=== PATIENT | male | born 1960 | race Caucasian/White ===

== ENCOUNTER 2017-12-16 10:52 | Emergency (ER) | payer OTHER ==
--- NOTE | 2017-12-16 12:10 | ED Physician Documentation ---
PD HPI UPPER EXT INJURY - Stated complaint Stated Complaint: L SHOULDER INJ/GLF - Chief complaint Chief Complaint: Ext Problem - History obtained from History obtained from: Patient - History of Present Illness Location: Left, Shoulder Type of injury: Fall, Blunt / blow Where injury occurred: Home Timing - onset: Today Timing - details: Abrupt onset Severity Comments: moderate Improved by: Rest, Ice, Immobilization Worsened by: Moving Associated symptoms: No: Weakness, Numbness, Tingling Contributing factors: No: Anticoagulated Similar symptoms before: No diagnosis Recently seen: Not recently seen - Additonal information Additional information: No injury to the head, neck, torso, abdomen or lower extremities. Review of Systems Constitutional: reports: Fatigue. denies: Fever Cardiac: denies: Chest pain / pressure Respiratory: denies: Cough GI: denies: Abdominal Pain : denies: Dysuria Musculoskeletal: reports: Extremity pain, Joint pain. denies: Neck pain, Back pain, Joint swelling Neurologic: denies: Generalized weakness Immunocompromised: denies: Chemotherapy PD PAST MEDICAL HISTORY - Past Medical History Past Medical History: No Cardiovascular: None Respiratory: None Endocrine/Autoimmune: None GI: None : None HEENT: None Psych: None Musculoskeletal: None Derm: None - Past Surgical History Past Surgical History: Yes HEENT: Other - Present Medications Home Medications: Ambulatory Orders Medication Instructions Recorded Confirmed Naproxen [Naprosyn] 500 mg PO BID PRN 30 Days #30 12/16/17 tablet - Allergies Allergies/Adverse Reactions: Allergies Allergy/AdvReac Type Severity Reaction Status Date / Time No Known Drug Allergies Allergy Verified 12/16/17 11:21 - Social History Does the pt smoke?: No Smoking Status: Never smoker Does the pt drink ETOH?: No Does the pt have substance abuse?: No - Immunizations Immunizations are current?: No Immunizations: No immun PD ED PE NORMAL - General General: Alert and oriented X 3, No acute distress - HEENT HEENT: Atraumatic, PERRL, EOMI, Ears normal - Neck Neck: No bony TTP - Back Back: No spinal TTP - Derm Derm: Normal color - Extremities Extremities: No deformity. No: No tenderness to palpate (The patient has no tenderness palpation along the left clavicle, no crepitus. The patient has tenderness to palpation of the left shoulder. There is no obvious deformity. The patient has decreased range of motion secondary to pain.The patient has normal sensation over the deltoid. No pain in the left elbow or wrist or hand. Normal radial pulse and normal cap refill), Normal ROM s pain - Neuro Neuro: Alert and oriented X 3, Normal speech Results - Vitals Vitals: Vital Signs - 24 hr 12/16/17 12/16/17 10:59 13:03 Temperature 36.6 C 37.3 C Heart Rate 86 74 Respiratory 14 20 Rate Blood Pressure 110/73 108/75 O2 Saturation 98 100 Oxygen O2 Source Room air - Rads (name of study) Shoulder Radiology: Final report received, See rad report PD MEDICAL DECISION MAKING - ED course ED course: No fracture seen on x-ray per the radiologist, the patient appears appropriate for discharge and outpatient management. I advised that he should have a follow-up exam with primary care. If the patient's symptoms are not improving he may need a referral to orthopedics or an outpatient MRI. The patient understands and agrees. I discussed warning signs and recommended returning to the emergency department immediately for any worsening or concerns. Departure - Departure Disposition: 01 Home, Self Care Clinical Impression: Shoulder contusion Qualifiers: Encounter type: initial encounter Laterality: unspecified laterality Qualified Code(s): S40.019A - Contusion of unspecified shoulder, initial encounter Condition: Good Instructions: ED Contusion Shoulder Follow-Up: Nikolai Rodríguez MD [Primary Care Provider] - Within 1 week Prescriptions: Naproxen [Naprosyn] 500 mg PO BID PRN 30 Days #30 tablet PRN Reason: Pain Comments: Please return to the emergency department for worsening symptoms or new concerns.
[2017-12-16] MEDS ORDERED: NAPROXEN 250 MG TABLET PO STA (12:20)
--- NOTE | 2017-12-16 12:55 | XRAY Report ---
Reason: left shoulder injury Procedure Date: 12/16/2017 Accession Number: [id number] / [id number] Procedure: XR - Shoulder 3 View LT CPT Code: FULL RESULT: EXAM: LEFT SHOULDER RADIOGRAPHY EXAM DATE: 12/16/2017 11:34 AM. CLINICAL HISTORY: Left shoulder injury. COMPARISON: None. TECHNIQUE: 3 views. FINDINGS: Bones: Normal. No fracture or bone lesion. Joints: Glenohumeral joint space and alignment are normal. Mild acromioclavicular osteoarthritis. Soft tissues: Unremarkable IMPRESSION: No acute radiographic abnormality of the left shoulder. Mild left acromioclavicular osteoarthritis. [facility]
[2017-12-16 13:04] VITALS: BP 108/75
== END 2017-12-16 13:01 | disposition home or self-care (01) ==
LOC: ED 10:52
DX: S40.012A Contusion of left shoulder, initial encounter (principal); W01.10XA Fall on same level from slipping, tripping and stumbling with subsequent striking against unspecified object, initial encounter; Y92.009 Unspecified place in unspecified non-institutional (private) residence as the place of occurrence of the external cause
CPT/HCPCS: 73030; 99283; A9270

== ENCOUNTER 2018-02-04 08:42 | Outpatient (CLI) | payer OTHER ==
--- NOTE | 2018-02-04 14:09 | MRI Report ---
Reason: PAIN IN LEFT SHOULDER Procedure Date: 02/04/2018 Accession Number: [id number] / [id number] Procedure: MRI - Shoulder LT W/O CPT Code: FULL RESULT: EXAM: LEFT SHOULDER MRI WITHOUT CONTRAST EXAM DATE: 02/04/2018 09:43 AM. CLINICAL HISTORY: Pain in left shoulder. COMPARISON: None. TECHNIQUE: Multiplanar, multisequence T1-weighted and fluid-sensitive sequences of the shoulder without contrast. Other: None. FINDINGS: Acromioclavicular Region: The acromion is type II. The acromioclavicular joint is unremarkable. The coracoacromial and coracoclavicular ligaments are intact. Moderate amount of fluid in the bursa. Moderate joint effusion also seen. Glenohumeral Region: No subluxation. Moderate-sized joint effusion. Some debris also seen in the joint. Series 501 image 16. The articular cartilage is unremarkable. The glenohumeral ligaments and joint capsule are unremarkable. Bone Marrow: No fracture, marrow edema or bone lesions. Labrum: There is slight irregularity of the anterior labrum, no convincing evidence for labral pathology. Musculature/Rotator Cuff: Full-thickness tear distal anterior supraspinatus fibers allows joint fluid to flow easily into the bursa. Posterior half of the supraspinatus also shows some increased T2 signal. There is also a full-thickness tear of the subscapularis portions of the rotator cuff. Infraspinatus and teres minor are unremarkable. There is a small amount of edema in the musculotendinous junction of the subscapularis. Biceps Tendon: Long head biceps tendon is perched at the medial border of the bicipital groove with significant type I signal change. Other: The subcutaneous tissues are unremarkable. IMPRESSION: 1. Type II unipartite undersurface osseous acromion shape. Moderate amount of fluid in the bursa. Moderate joint effusion also seen. Some debris and loose bodies are seen in the glenohumeral joint anteriorly. 2. There is mild prominence of the anterior labrum. No discrete tears, however. 3. Full-thickness distal supraspinatus anteriorly, full-thickness tear subscapularis also seen. Infraspinatus and teres minor are unremarkable. Joint fluid is seen in the bursa. 4. Long head of biceps tendon is perched at the medial border of the bicipital groove, significant type I signal changes seen. [facility] MUSCULOSKELETAL RADIOLOGY SECTION
== END 2018-02-04 08:43 | disposition home or self-care (01) ==
LOC: DI 08:42
PROVIDERS: ATTEND Orthopaedic Surgery Sports Medicine
DX: S43.492A Other sprain of left shoulder joint, initial encounter (principal); M25.412 Effusion, left shoulder; M24.012 Loose body in left shoulder

== ENCOUNTER 2018-02-08 13:12 | Outpatient (CLI) | payer OTHER ==
[2018-02-08 13:29] LABS: BASOPHILS # (AUTO) 0.1 10^3/uL (0.0-0.1); BASOPHILS % (AUTO) 0.8 %; EOSINOPHILS # (AUTO) 0.4 10^3/uL (0.0-0.7); EOSINOPHILS % (AUTO) 4.8 %; HGB - HEMOGLOBIN 14.7 g/dL (14.0-18.0); LYMPHOCYTES # (AUTO) 1.3 10^3/uL (1.5-3.5); LYMPHOCYTES % (AUTO) 18.2 %; MEAN CORPUSCULAR HEMOGLOBIN 30.2 pg (27.0-31.0); MEAN CORPUSCULAR HGB CONC 34.1 g/dL (32.0-36.0); MEAN CORPUSCULAR VOLUME 88.6 fL (80.0-94.0); MEAN PLATELET VOLUME 7.3 fL (7.4-11.4); MONOCYTES % (AUTO) 13.8 %; NEUTROPHILS # (AUTO) 4.6 10^3/uL (1.5-6.6); NEUTROPHILS % (AUTO) 62.4 %; PLT - PLATELET COUNT 222 10^3/uL (130-450); RED BLOOD COUNT 4.86 10^6/uL (4.70-6.10); RED CELL DISTRIBUTION WIDTH 13.3 % (12.0-15.0); WHITE BLOOD COUNT 7.4 x10^3/uL (4.8-10.8)
[2018-02-08 13:37] LABS: CALCIUM 8.8 mg/dL (8.5-10.3)
== END 2018-02-08 13:13 | disposition home or self-care (01) ==
LOC: LAB 13:12
PROVIDERS: ATTEND Orthopaedic Surgery Sports Medicine
DX: Z01.818 Encounter for other preprocedural examination (principal); M75.42 Impingement syndrome of left shoulder; S43.492D Other sprain of left shoulder joint, subsequent encounter; M24.012 Loose body in left shoulder
CPT/HCPCS: 36415; 80048; 85025; 93005

== ENCOUNTER 2018-02-13 06:04 | Day surgery (SDC) | payer OTHER ==
[2018-02-13] MEDS ORDERED: LACTATED RINGERS 1,000 ML IV ONE ×2 (06:28→10:58)
[2018-02-13] MEDS ORDERED: ceFAZolin 2 GM/50 ML 2 GM/50 ML BAG IV ONE (06:35)
--- NOTE | 2018-02-13 07:12 | ANESTHESIA ---
Pre-Anesthesia VS, & Labs - Diagnosis Left shoulder rotator cuff tears, biceps subluxation, loose pieces of debris, impingement - Procedure Left shoulder arthroscopic vs open rotator cuff repair, biceps tenodesis, subacromial decompression, debridement Vital Signs: Temp Pulse Resp BP Pulse Ox 36.4 C L 70 16 107/87 H 97 02/13/18 06:46 02/13/18 06:46 02/13/18 06:46 02/13/18 06:46 02/13/18 06:46 Height 5 ft 11 in Weight (kg) 90.5 kg Body Mass Index 27.1 - NPO >8 hours - Lab Results Current Lab Results: Laboratory Tests 02/13/18 06:57: POC Whole Bld Glucose 103 H Home Medications and Allergies Home Medications: Ambulatory Orders No Known Home Medications 02/11/18 No Known Home Medications 02/11/18 Allergies/Adverse Reactions: Allergies Allergy/AdvReac Type Severity Reaction Status Date / Time No Known Drug Allergies Allergy Verified 12/16/17 11:21 Anes History & Medical History - Anesthetic History Anesthesia Complications: reports: No previous complications - Medical History Cardiovascular: reports: None Pulmonary: reports: None Gastrointestinal: reports: GERD (poorly controlled, takes tums) Urinary: reports: None Neuro: reports: None Musculoskeletal: reports: None Endocrine/Autoimmune: reports: None Blood Disorders: reports: None Skin: reports: None Smoking Status: Never smoker - Surgical History General: Other (removal of breast mass) Eyes Ears Nose Throat (EENT): Other (removal of nasal polyps) Exam General: Alert, Oriented x3, Cooperative, No acute distress Dental: WNL Mouth Openin Fingerbreadth Neck Mobility: Normal Mallampati classification: III Thyromental Distance: less than 4 cm (2 FB) Respiratory: Lungs clear, Normal breath sounds, No respiratory distress, No accessory muscle use Cardiovascular: Regular rate, Normal S1, Normal S2, No murmurs Mental/Cognitive Status: Alert/Oriented X3, Normal for patient Plan Anesthesia Type: General, Interscalene Block (Left) Regional Block: Per Surgeon's request for Post Op pain control Consent for Procedure(s) Verified and Reviewed: Yes Code Status: Attempt Resuscitation ASA classification: 2-Mild systemic disease Is this case an emergency?: No
[2018-02-13] MEDS ORDERED: BUPIVACAINE 0.5% PF 30 ML VIAL ONE (07:19)
[2018-02-13] MEDS ORDERED: EPINEPHrine 1 MG/ML AMP ONE (07:19)
[2018-02-13] MEDS ORDERED: ROCURONIUM 50 MG/5 ML VIAL IVP ONE (08:48)
[2018-02-13] MEDS ORDERED: ONDANSETRON 4 MG/2 ML VIAL IVP ONE (08:48)
[2018-02-13] MEDS ORDERED: PROPOFOL 200 MG/20 ML VIAL IVP ONE (08:48)
[2018-02-13] MEDS ORDERED: fentaNYL 100 MCG/2 ML VIAL IVP ONE (08:48)
[2018-02-13] MEDS ORDERED: ROPIVACAINE 0.5% PF 20 ML AMPULE EP ONE (08:48)
[2018-02-13] MEDS ORDERED: MIDAZOLAM 2 MG/2 ML VIAL IVP ONE (08:48)
[2018-02-13] MEDS ORDERED: LIDOCAINE-MPF 2% 5 ML VIAL IM ONE (08:48)
[2018-02-13] MEDS ORDERED: DEXAMETHASONE 4 MG/ML VIAL IVP ONE (08:48)
[2018-02-13] MEDS ORDERED: BUPIVACAINE 0.5% PF 30 ML VIAL SUBQ ONE (08:58)
[2018-02-13] MEDS ORDERED: EPINEPHrine 1 MG/ML AMP IVP ONE (08:58)
[2018-02-13] MEDS ORDERED: ONDANSETRON 4 MG/2 ML VIAL IVP PRN (11:02)
[2018-02-13] MEDS ORDERED: oxyCODONE 5 MG TABLET PO PRN (11:02)
--- NOTE | 2018-02-13 11:11 | IMMEDIATE POSTOPERATIVE NOTE ---
Immediate Postoperative Note - Procedure Note Procedure Date: 02/13/18 Pre-Op Diagnosis: LEFT SHOULDER ROTATOR CUFF TEAR, LONG HEAD BICEPS SUBLUXATION, SA IMPINGMNT Procedure: L SHOULDER SCOPE SAD, RCR X2, LH BICEPS TENODESIS Post-Op Diagnosis: ABOVE Primary Surgeon: Shay HESTER MD Clinical Trial Head: MARLY Anesthesia Type: General ET tube, Local, Regional block Findings: ABOVE Complications: No complications Estimated Blood Loss (in cc): 50 Plan of Care: PT TOLERATED PROCEDURE WELL. INSTRUMENT AND SPONGE COUNT CORRECT. PT TRANSFERRED TO RR IN STABLE CONDITION. LEFT SHOULDER POST BICEPS TENODESIS AND RCR PROTOCOL F/U 10-14 DAYS OR SOONER PRN
[2018-02-13 12:28] VITALS: BP 143/81
--- NOTE | 2018-02-13 13:24 | OPERATIVE REPORT ---
DATE OF SERVICE: 02/13/2018 Physician: Neftali Milian MD PREOPERATIVE DIAGNOSES 1. Left shoulder supraspinatus rotator cuff tear. 2. Left shoulder subscapularis rotator cuff tear. 3. Left shoulder long head biceps subluxation. 4. Left shoulder subacromial impingement/bursitis. POSTOPERATIVE DIAGNOSES 1. Left shoulder supraspinatus rotator cuff tear. 2. Left shoulder subscapularis rotator cuff tear. 3. Left shoulder long head biceps subluxation. 4. Left shoulder subacromial impingement/bursitis. PROCEDURES PERFORMED 1. Left shoulder arthroscopic rotator cuff repair, subscapularis in glenohumeral joint. 2. Left shoulder arthroscopic rotator cuff repair supraspinatus from subacromial space. 3. Left shoulder arthroscopic long head biceps tenodesis. 4. Left shoulder arthroscopic subacromial decompression, conversion to type I acromion. SURGEON: Neftali Milian MD SALES AND MARKETING AGENT: None. ANESTHESIA PROVIDER: Kerry Fry CRNA ANESTHESIA: General endotracheal, as well as left side ultrasound-guided interscalene nerve block by Anesthesia team, as well as 30 mL of 0.5% Marcaine local anesthetic, left shoulder. INTRAOPERATIVE COMPLICATIONS: None noted. INTRAOPERATIVE FINDINGS: Patient was noted to have a full-thickness superior tear of the subscapularis. The inferior portion remained intact. This was reapposed with near anatomic position as was the anterior supraspinatus tear noted. There was a oijk-xc-xypu split of the posterior aspect of the supraspinatus tear and then the anterior aspect was avulsed from the footprint. Long head biceps subluxed out of the groove with some partial tearing. Downsloping anterior aspect of the acromion with some adhesions and bursitis. No loose bodies appreciated. There is some glenohumeral chondromalacia grade 1- 2 with some minimal labral fraying. Rrotator cuff okay. ORTHOPEDIC IMPLANTS 1. Arthrex 5.5 fully threaded triple-loaded corkscrew BioComposite x2. 2. [employer] BioComposite SwiveLock 5.5 x1. 3. [employer] 7 x 23 BioComposite biceps tenodesis screw. 4. #2 FiberWire suture. HISTORY OF PRESENT ILLNESS AND INDICATIONS: Patient is an active 57-year-old gentleman who is known to have a left shoulder rotator cuff injury and biceps injury. It is painful and weak and had not only physical exam findings, but MRI findings consistent with his diagnosis noted above. He is indicated for operative treatment. Please see preoperative clinic discussion for risks, benefits, and alternatives, which are reviewed. These are highlighted in the preoperative care unit. His questions are answered. He verbalizes wish to proceed with operative treatment. Informed consent is given. PROCEDURE: On 02/13/2018 patient is identified in the preoperative care unit. He identifies his left shoulder as the operative site. This is signed by the operating surgeon. Patient received preoperative weight-based IV antibiotics and had an ultrasound-guided interscalene nerve block, left side after the site identification, Patient is brought to the operating room. General anesthesia is administered. He is placed in the right-side down lateral decubitus position with appropriately placed axillary roll to avoid encumbrance of the axilla. Down leg was gel padded. Both calves have SCD boots in place. Appropriately placed pillows between the knees, head and neck, and extremities are placed in anatomically comfortable and safe positions. Left upper extremity, axillary hair is shaved, and the left upper extremity is prescrubbed with chlorhexidine solution and then prepped and draped in the usual sterile fashion. The arm chinchilla had a combination of 5, 10, or 15 pounds of traction at any given time, depending on the portion of the case. At this point, left shoulder is identified as the operative site, local anesthetic is infused, scope is introduced into the glenohumeral joint after a small incision made posteriorly. Diagnostic arthroscopy is carried out. Please see operative findings. At this point, outside-in technique is used to place an anterior portal, which is created, and then the biceps is tagged using a FastPass Scorpion device and #2 FiberWire. The biceps is then released from the superior labrum. This area is debrided using a mechanical shaver, and the joint is copiously irrigated and evacuated and noted to be free of loose debris. At this point, the footprint of the subscapularis is prepped with a combination of a rasp and shaver. The superior aspect of the subscapularis is prepared with a shaver and rasp to freshen the edge to elicit a biologic healing response. At this point, FiberTape is used and passed using a FastPass Scorpion towards the lateral edge of the subscapularis suture. This achieves excellent capture of the superior aspect of the subscapularis and then, using a SwiveLock device after punching a hole in the footprint, the SwiveLock device is used to affix the superior aspect of the subscapularis to its near anatomic footprint. The SwiveLock device is seated to the level of the bone. The extra suture is removed. This reapposes the subscapularis nicely with good integrity of the repair with range of motion of the shoulder. Residual suture limb cut. The subscapularis is noted to be well fixed, and attention was now directed to the subacromial space. At this point, a lateral incision was made. Subacromial decompression was performed using a meniscal shaver, arthroscopic heating device with appropriate flow to avoid thermal injury, and a bur to debride the acromion to a type 1 after elevation of the coracoacromial ligament. Hemostasis was achieved. The rotator cuff is freshened up using a meniscal basket at the edge and the posterior jtri-tx-rgnk split. The rotator cuff footprint anteriorly was debrided using a shaver and then ultimately a bur to gently freshen bleeding bone. The joint was copiously irrigated and at this point, the previously tagged biceps was delivered through an auxiliary anterolateral incision and a whipstitch #2 FiberWire was placed into this, capturing the proximal aspect of the biceps. The appropriate amount is removed. At this point, at the superior aspect of the biceps groove, a guide pin was placed, followed by a 7.5 mm reamer as the tendon was 7 mm. The tendon is then pushed into this socket and followed by a biceps tenodesis screw, achieving excellent compression and fixation with a 7 mm screw. At this point, the sutures were tied over the biceps tenodesis screw, thereby completing this portion of the procedure. Suture limbs are cut. The biceps is noted to be well fixed in the superior aspect of the biceps groove at the appropriate height. At this point, a zoer-lf-zncn suture is placed in a yphpiz-qo-uymzw fashion in the posterior rezu-it-exlh split of the rotator cuff tear. This is then tied and makes the overall rotator cuff tear smaller. An arthroscopic chisel is used to free up soft tissue above and below the rotator cuff to give it better excursion laterally, and then sequential anterior and posterior anchors are placed in the rotator cuff footprint, followed by 5 simple sutures placed by a Scorpion device and a posterior horizontal mattress suture at the most anterior aspect of the maio-zi-oqea split. These are then tied in reverse order thereby reapposing the rotator cuff to its near-anatomic footprint. Sutures are tied, and then suture limbs are cut. The rotator cuff was noted to be well opposed with good integrity of the repair with range of motion. At this point, subacromial space is copiously irrigated, hemostasis achieved. Rotator cuff is noted to be well repaired. At this point, local anesthetic is infused, and instruments are removed. Arthroscopic incisions are closed using interrupted nylon suture. Skin is washed and dried. Xeroform dressing is applied, dry sterile dressings applied, ABD pad, and micropore tape. Patient is placed in abduction pillow sling. Patient tolerated the procedure well. Instrument and sponge counts are correct. Patient is transferred to the recovery room in stable condition. Patient would follow standard postoperative left shoulder rotator cuff repair protocol and long head biceps protocol. Of note, he did have a subscapularis repair as well, so he would avoid any external rotation beyond 0 degrees and avoid any active internal rotation. He would avoid active shoulder range of motion and active elbow flexion. He will keep the dressings clean, dry, and intact. In 3 days he would change it to a waterproof Band-Aid and may let his arm relax at the side of his body for showering, but keep the dressings sealed, and then dry, and then replace the dressings post shower. He should do no soaking. We would plan on seeing him in 10-14 days. He is already given previous prescriptions for analgesics, narcotic oxycodone, and Keflex for 24 hours. He is also advised to use ckcq-tva-dksxbod bowel regimen medication during the time that he is using narcotics. He would notify us sooner than followup appointment should problems, questions, or worsening condition should arise. These instructions are reviewed, pre- and postoperative, and he is given a written copy. He declines offer to contact family member. TD: 02/13/2018 12:15 ANKIT
== END 2018-02-13 06:05 | disposition home or self-care (01) ==
LOC: SDS 06:04
PROVIDERS: ATTEND Orthopaedic Surgery Sports Medicine
PROC: 0RHK44Z Insertion of Internal Fixation Device into Left Shoulder Joint, Percutaneous Endoscopic Approach (ICD-10-PCS; 2018-02-13)
PROC: 0LS24ZZ Reposition Left Shoulder Tendon, Percutaneous Endoscopic Approach (ICD-10-PCS; 2018-02-13)
PROC: 0RNK4ZZ Release Left Shoulder Joint, Percutaneous Endoscopic Approach (ICD-10-PCS; 2018-02-13)
PROC: 0LM24ZZ Reattachment of Left Shoulder Tendon, Percutaneous Endoscopic Approach (ICD-10-PCS; principal; 2018-02-13 07:30)
DX: M75.122 Complete rotator cuff tear or rupture of left shoulder, not specified as traumatic (principal); S46.112D Strain of muscle, fascia and tendon of long head of biceps, left arm, subsequent encounter; M75.42 Impingement syndrome of left shoulder; M75.02 Adhesive capsulitis of left shoulder; M94.212 Chondromalacia, left shoulder; K21.9 Gastro-esophageal reflux disease without esophagitis; Z79.1 Long term (current) use of non-steroidal anti-inflammatories (NSAID)
CPT/HCPCS: 29826; 29827; 29828; C1713; J0690; J7120

== ENCOUNTER 2019-04-07 07:40 | Outpatient (CLI) | payer OTHER ==
[2019-04-07 12:22] LABS: ALBUMIN 4.4 g/dL (3.2-5.5); ALBUMIN/GLOBULIN RATIO 1.6 (1.0-2.2); ALKALINE PHOSPHATASE 41 IU/L (42-121); ALT ALANINE AMINOTRANSFERASE 34 IU/L (10-60); AST ASPARTATE AMINOTRANSFERASE 25 IU/L (10-42); BILIRUBIN,TOTAL 0.8 mg/dL (0.2-1.0); BUN - BLOOD UREA NITROGEN 19 mg/dL (6-20); CALCIUM 9.1 mg/dL (8.5-10.3); CARBON DIOXIDE - CO2 27 mmol/L (21-32); CHLORIDE 103 mmol/L (101-111); CHOL/HDL RATIO 3.1 (<5.0); CHOLESTEROL 165 mg/dL; CREATININE 1.1 mg/dL (0.6-1.2); GLUCOSE 110 mg/dL (70-100); HDL CHOLESTEROL 54 mg/dL; LDL CHOLESTEROL,CALCULATED 100 mg/dL; LDL/HDL RATIO 1.9 (<3.6); SODIUM 138 mmol/L (135-145); TOTAL PROTEIN 7.2 g/dL (6.7-8.2); VLDL CHOLESTEROL 11 mg/dL
[2019-04-07 12:33] LABS: THYROID STIMULATING HORMONE 2.05 uIU/mL (0.34-5.60)
[2019-04-07 12:35] LABS: FREE T4 (FREE THYROXINE) 0.91 ng/dL (0.58-1.64)
== END 2019-04-07 23:59 | disposition home or self-care (01) ==
LOC: LAB.WCP 07:40 → MERGE 07:42 → LAB.WCP 23:59
PROVIDERS: ATTEND Family Medicine
DX: Z00.00 Encounter for general adult medical examination without abnormal findings (principal); R79.89 Other specified abnormal findings of blood chemistry
CPT/HCPCS: 36415; 80053; 80061; 83721; 84153; 84439; 84443

== ENCOUNTER 2020-02-02 12:26 | Outpatient (CLI) | payer OTHER ==
--- NOTE | 2020-02-02 15:33 | XRAY Report ---
PROCEDURE: Lumbar Spine Complete INDICATIONS: BACK PAIN, LUMBAR TECHNIQUE: 4 views of the lumbar spine were acquired. COMPARISON: None. FINDINGS: Bones: 5 kzm-lqy-naelkjo vertebrae are present. There is multilevel trace retrolisthesis throughout the lumbar spine. Severe disc and foraminal narrowing is present at L5-S1. Minimal nonbridging anter ior ossified are present most notable at L4 and L5. No vertebral body compression fractures. No susp icious bony lesions. Soft tissues: Overlying bowel gas pattern is normal. No suspicious soft tissue calcifications. IMPRESSION: Disc and foraminal narrowing most normal at L5-S1. Reviewed by: Batsheva Lang MD on 02/02/2020 3:32 PM PST Approved by: Batsheva Lang MD on 02/02/2020 3:32 PM PST Station ID: [id number]
== END 2020-02-02 12:27 | disposition home or self-care (01) ==
LOC: DI 12:26
PROVIDERS: ATTEND Internal Medicine
DX: M48.07 Spinal stenosis, lumbosacral region (principal)

== ENCOUNTER 2021-01-12 08:57 | Day surgery (SDC) | payer OTHER ==
[2021-01-12] MEDS ORDERED: LACTATED RINGERS 1,000 ML IV ONE ×2 (09:02→12:04)
--- NOTE | 2021-01-12 10:47 | ANESTHESIA ---
Pre-Anesthesia VS, & Labs - Diagnosis hx of colon polyps - Procedure colonoscopy Vital Signs: Temp Pulse Resp BP Pulse Ox 37 C 74 16 132/80 H 97 01/12/21 09:04 01/12/21 09:04 01/12/21 09:04 01/12/21 09:04 01/12/21 09:04 Height: 5 ft 11 in Weight (kg): 94.4 kg Body Mass Index: 29.0 BMI Classification: Overweight - NPO >8 hours - Lab Results Lab results reviewed: Yes Home Medications and Allergies Home Medications: Ambulatory Orders Levothyroxine Sodium [Levothyroxine] 50 mcg PO DAILY 01/11/21 Omeprazole Magnesium 20 mg PO DAILY 01/11/21 Levothyroxine Sodium [Levothyroxine] 50 mcg PO DAILY 01/11/21 Omeprazole Magnesium 20 mg PO DAILY 01/11/21 Allergies/Adverse Reactions: Allergies Allergy/AdvReac Type Severity Reaction Status Date / Time No Known Drug Allergies Allergy Verified 01/11/21 14:22 Anes History & Medical History - Anesthetic History Anesthesia Complications: reports: No previous complications Family history of Anesthesia Complications: Denies Family history of Malignant Hyperthermia: Denies - Medical History Cardiovascular: reports: None Pulmonary: reports: None Gastrointestinal: reports: GERD Urinary: reports: None Neuro: reports: None Musculoskeletal: reports: None Endocrine/Autoimmune: reports: HyPOthyroidism Blood Disorders: reports: None Skin: reports: None Smoking Status: Never smoker - Surgical History Eyes Ears Nose Throat (EENT): reports: Other Orthopedic: reports: Shoulder arthroplasty Exam General: Alert, Oriented x3, Cooperative, No acute distress Dental: WNL Mouth Openin Fingerbreadth Neck Mobility: Normal Mallampati classification: II Respiratory: Lungs clear, Normal breath sounds, No respiratory distress, No accessory muscle use Cardiovascular: Regular rate, Normal S1, Normal S2, No murmurs Plan Anesthesia Type: General, Total IV Consent for Procedure(s) Verified and Reviewed: Yes Code Status: Attempt Resuscitation ASA classification: 2-Mild systemic disease Is this case an emergency?: No
[2021-01-12] MEDS ORDERED: PROPOFOL 200 MG/20 ML VIAL IVP ONE ×2 (10:59→11:37)
[2021-01-12] MEDS ORDERED: PROPOFOL 500 MG/50 ML 500 MG/50 ML VIAL ONE (10:59)
--- NOTE | 2021-01-12 11:03 | HISTORY & PHYSICAL EXAMINATION ---
Chief Complaint - Chief Complaint Chief Complaint: History colon polyps History of Present Illness - History Obtained From Records Reviewed: yes History obtained from: pt Exam Limitations: none - History of Present Illness HPI Comment/Other: History colon polyps. Here for 5 year surveillance. No intestinal problems. History - Past Medical History Cardiovascular: reports: None Respiratory: reports: None Neuro: reports: None Endocrine/Autoimmune: reports: HyPOthyroidism GI: reports: GERD : reports: None HEENT: reports: None Psych: reports: None Musculoskeletal: reports: None Derm: reports: None MRSA Hx?: No - Past Surgical History Ortho: reports: Shoulder arthroplasty HEENT: reports: Other Meds/Allgy - Home Medications Home Medications: Ambulatory Orders Medication Instructions Recorded Confirmed Levothyroxine Sodium 50 mcg PO DAILY 01/11/21 01/11/21 [Levothyroxine] Omeprazole Magnesium 20 mg PO DAILY 01/11/21 01/11/21 - Allergies Allergies/Adverse Reactions: Allergies Allergy/AdvReac Type Severity Reaction Status Date / Time No Known Drug Allergies Allergy Verified 01/11/21 14:22 Review of Systems - Other Findings Other Findings: 10 pt ros as above otherwise unremarkable Exam - Vital Signs Reviewed Vital Signs: Yes Vital Signs: Vital Signs x48h Temp Pulse Resp BP Pulse Ox 01/12/21 09:04 37 C 74 16 132/80 H 97 - Physical Exam General Appearance: positive: No acute distress, Alert Eyes Bilateral: positive: Normal inspection, EOMI ENT: positive: No signs of dehydration Neck: positive: No JVD Respiratory: positive: No respiratory distress, Breath sounds nml Cardiovascular: positive: Regular rate & rhythm Abdomen: positive: Non-tender, No distention Neurologic/Psychiatric: positive: Oriented x3 Conclusion/Plan - Problem List (1) History of adenomatous polyp of colon Conclusion/Plan: plan colonoscopy. parq held and consent obtained - Lab Results Lab results reviewed: Yes
[2021-01-12] MEDS ORDERED: GLYCOPYRROLATE 1 MG/5 ML VIAL ONE (11:38)
[2021-01-12 12:27] VITALS: BP 106/77
--- NOTE | 2021-01-12 12:29 | ANESTHESIA POST OP EVALUATION ---
Anesthesia Post Eval - Post Anesthesia Eval Vitals: Last Vital Signs Temp 36.5 C 01/12/21 12:01 Pulse 73 01/12/21 12:26 Resp 13 01/12/21 12:26 BP 106/77 01/12/21 12:26 Pulse Ox 97 01/12/21 12:26 CV Function Including HR & BP: Stable Pain Control: Satisfactory Nausea & Vomiting: Negative Mental Status: Baseline Respiratory Status: Airway Patent Hydration Status: Satisfactory Anesthesia Complications: None
== END 2021-01-12 08:58 | disposition home or self-care (01) ==
LOC: SDS 08:57
PROVIDERS: ATTEND Surgery
PROC: 0DBM8ZZ Excision of Descending Colon, Via Natural or Artificial Opening Endoscopic (ICD-10-PCS; principal; 2021-01-12 10:30)
DX: Z12.11 Encounter for screening for malignant neoplasm of colon (principal); D12.4 Benign neoplasm of descending colon; K57.30 Diverticulosis of large intestine without perforation or abscess without bleeding
CPT/HCPCS: 45385; J7120

== ENCOUNTER 2021-02-15 08:00 | Outpatient (CLI) | payer OTHER ==
--- NOTE | 2021-02-15 09:16 | XRAY Report ---
PROCEDURE: Thoracic Spine 3 View INDICATIONS: THORACIC BACK PX TECHNIQUE: AP and lateral views of the thoracic spine were acquired. COMPARISON: None. FINDINGS: Bones: No acute compression fractures or dislocations. No suspicious bony lesions. 12 pairs of rib s are noted, and appear intact where visualized. Multilevel thoracic spondylosis of lower cervical s pondylosis. Soft tissues: No paravertebral stripe thickening. IMPRESSION: Thoracic spine without acute fracture or dislocation. Multilevel lower cervical and thoracic spondylo sis. Reviewed by: Lazaro De La Cruz MD on 02/15/2021 9:15 AM PST Approved by: Lazaro De La Cruz MD on 02/15/2021 9:15 AM PST Station ID: [id number]
== END 2021-02-15 23:59 ==
LOC: DI.N 08:00
PROVIDERS: ATTEND Family Medicine
DX: M47.812 Spondylosis without myelopathy or radiculopathy, cervical region (principal); M47.814 Spondylosis without myelopathy or radiculopathy, thoracic region

== ENCOUNTER 2021-03-04 07:05 | Outpatient (CLI) | payer OTHER ==
[2021-03-04 11:50] LABS: BASOPHILS % (AUTO) 0.5 %; EOSINOPHILS # (AUTO) 0.2 10^3/uL (0.0-0.7); EOSINOPHILS % (AUTO) 2.2 %; HCT - HEMATOCRIT 47.9 % (42.0-52.0); HGB - HEMOGLOBIN 15.2 g/dL (14.0-18.0); LYMPHOCYTES % (AUTO) 25.8 %; MEAN CORPUSCULAR HEMOGLOBIN 29.2 pg (27.0-31.0); MEAN CORPUSCULAR HGB CONC 31.7 g/dL (32.0-36.0); MEAN CORPUSCULAR VOLUME 91.9 fL (80.0-94.0); MEAN PLATELET VOLUME 9.6 fL (7.4-11.4); MONOCYTES # (AUTO) 0.8 10^3/uL (0.0-1.0); MONOCYTES % (AUTO) 10.5 %; NEUTROPHILS # (AUTO) 4.8 10^3/uL (1.5-6.6); NEUTROPHILS % (AUTO) 60.6 %; PLT - PLATELET COUNT 251 10^3/uL (130-450); RED BLOOD COUNT 5.21 10^6/uL (4.70-6.10); RED CELL DISTRIBUTION WIDTH 12.7 % (12.0-15.0); WHITE BLOOD COUNT 7.9 x10^3/uL (4.8-10.8)
[2021-03-04 12:14] LABS: ALBUMIN 4.4 g/dL (3.2-5.5); ALBUMIN/GLOBULIN RATIO 1.5 (1.0-2.2); ALKALINE PHOSPHATASE 53 IU/L (42-121); ALT ALANINE AMINOTRANSFERASE 35 IU/L (10-60); AST ASPARTATE AMINOTRANSFERASE 22 IU/L (10-42); BILIRUBIN,TOTAL 0.5 mg/dL (0.2-1.0); BUN - BLOOD UREA NITROGEN 16 mg/dL (6-20); CALCIUM 9.5 mg/dL (8.5-10.3); CARBON DIOXIDE - CO2 27 mmol/L (21-32); CHLORIDE 101 mmol/L (101-111); CHOL/HDL RATIO 3.6 (<5.0); CHOLESTEROL 190 mg/dL; GFR - MDRD 76 (>89); GLUCOSE 101 mg/dL (70-100); HDL CHOLESTEROL 53 mg/dL; LDL CHOLESTEROL,CALCULATED 120 mg/dL; LDL/HDL RATIO 2.3 (<3.6); POTASSIUM 4.4 mmol/L (3.5-5.0); SODIUM 138 mmol/L (135-145); TOTAL PROTEIN 7.3 g/dL (6.7-8.2); TRIGLYCERIDES 83 mg/dL; VLDL CHOLESTEROL 17 mg/dL
[2021-03-04 12:28] LABS: THYROID STIMULATING HORMONE 5.59 uIU/mL (0.34-5.60)
== END 2021-03-04 07:06 | disposition home or self-care (01) ==
LOC: LAB.N 07:05
PROVIDERS: ATTEND Internal Medicine
DX: Z00.00 Encounter for general adult medical examination without abnormal findings (principal); E03.9 Hypothyroidism, unspecified; Z12.5 Encounter for screening for malignant neoplasm of prostate; K21.9 Gastro-esophageal reflux disease without esophagitis
CPT/HCPCS: 36415; 80053; 80061; 83721; 84153; 84443; 85025

== ENCOUNTER 2022-05-31 07:13 | Outpatient (CLI) | payer OTHER ==
[2022-05-31 11:52] LABS: BASOPHILS % (AUTO) 0.4 %; EOSINOPHILS # (AUTO) 0.2 10^3/uL (0.0-0.7); EOSINOPHILS % (AUTO) 2.8 %; HCT - HEMATOCRIT 48.9 % (42.0-52.0); HGB - HEMOGLOBIN 15.4 g/dL (14.0-18.0); LYMPHOCYTES # (AUTO) 2.2 10^3/uL (1.5-3.5); LYMPHOCYTES % (AUTO) 26.4 %; MEAN CORPUSCULAR HEMOGLOBIN 29.4 pg (27.0-31.0); MEAN CORPUSCULAR HGB CONC 31.5 g/dL (32.0-36.0); MEAN CORPUSCULAR VOLUME 93.5 fL (80.0-94.0); MONOCYTES # (AUTO) 0.9 10^3/uL (0.0-1.0); MONOCYTES % (AUTO) 11.1 %; NEUTROPHILS # (AUTO) 4.9 10^3/uL (1.5-6.6); NEUTROPHILS % (AUTO) 58.8 %; PLT - PLATELET COUNT 269 10^3/uL (130-450); RED BLOOD COUNT 5.23 10^6/uL (4.70-6.10); RED CELL DISTRIBUTION WIDTH 12.8 % (12.0-15.0); WHITE BLOOD COUNT 8.3 x10^3/uL (4.8-10.8)
[2022-05-31 12:28] LABS: THYROID STIMULATING HORMONE 7.91 uIU/mL (0.34-5.60)
[2022-05-31 12:49] LABS: ALBUMIN 4.5 g/dL (3.2-5.5); ALBUMIN/GLOBULIN RATIO 1.5 (1.0-2.2); ALKALINE PHOSPHATASE 54 IU/L (42-121); ALT ALANINE AMINOTRANSFERASE 43 IU/L (10-60); AST ASPARTATE AMINOTRANSFERASE 26 IU/L (10-42); BILIRUBIN,TOTAL 0.6 mg/dL (0.2-1.0); BUN - BLOOD UREA NITROGEN 13 mg/dL (6-20); CALCIUM 9.1 mg/dL (8.5-10.3); CARBON DIOXIDE - CO2 30 mmol/L (21-32); CHLORIDE 103 mmol/L (101-111); CHOL/HDL RATIO 3.3 (<5.0); CHOLESTEROL 172 mg/dL; CREATININE 1.1 mg/dL (0.6-1.2); GFR - MDRD 68 (>89); GLUCOSE 108 mg/dL (70-100); HDL CHOLESTEROL 52 mg/dL; LDL CHOLESTEROL,CALCULATED 103 mg/dL; POTASSIUM 4.5 mmol/L (3.5-5.0); SODIUM 137 mmol/L (135-145); TOTAL PROTEIN 7.6 g/dL (6.7-8.2); TRIGLYCERIDES 85 mg/dL; VLDL CHOLESTEROL 17 mg/dL
[2022-05-31 13:28] LABS: FREE T4 (FREE THYROXINE) 0.74 ng/dL (0.58-1.64)
== END 2022-05-31 07:14 | disposition home or self-care (01) ==
LOC: LAB.N 07:13
PROVIDERS: ATTEND Internal Medicine
DX: E03.9 Hypothyroidism, unspecified (principal); Z13.1 Encounter for screening for diabetes mellitus; Z13.220 Encounter for screening for lipoid disorders; Z12.5 Encounter for screening for malignant neoplasm of prostate; Z13.0 Encounter for screening for diseases of the blood and blood-forming organs and certain disorders involving the immune mechanism
CPT/HCPCS: 36415; 80053; 80061; 83721; 84153; 84439; 84443; 85025

== ENCOUNTER 2023-10-10 07:05 | Outpatient (CLI) | payer OTHER ==
[2023-10-10 12:24] LABS: ALBUMIN 4.2 g/dL (3.2-5.5); ALBUMIN/GLOBULIN RATIO 1.6 (1.0-2.2); ALKALINE PHOSPHATASE 46 IU/L (42-121); ALT ALANINE AMINOTRANSFERASE 29 IU/L (10-60); AST ASPARTATE AMINOTRANSFERASE 19 IU/L (10-42); BILIRUBIN,TOTAL 0.5 mg/dL (0.2-1.0); BUN - BLOOD UREA NITROGEN 15 mg/dL (6-20); CALCIUM 9.5 mg/dL (8.5-10.3); CARBON DIOXIDE - CO2 30 mmol/L (21-32); CHLORIDE 105 mmol/L (101-111); CHOL/HDL RATIO 3.2 (<5.0); CHOLESTEROL 159 mg/dL; CREATININE 1.1 mg/dL (0.6-1.3); GFR - MDRD 67 (>89); GLUCOSE 108 mg/dL (74-104); HDL CHOLESTEROL 49 mg/dL; LDL CHOLESTEROL,CALCULATED 95 mg/dL; LDL/HDL RATIO 1.9 (<3.6); POTASSIUM 4.5 mmol/L (3.5-4.5); SODIUM 139 mmol/L (135-145); TOTAL PROTEIN 6.8 g/dL (6.4-8.9); TRIGLYCERIDES 76 mg/dL; VLDL CHOLESTEROL 15 mg/dL
[2023-10-10 12:40] LABS: THYROID STIMULATING HORMONE 5.02 uIU/mL (0.34-5.60)
== END 2023-10-10 07:06 | disposition home or self-care (01) ==
LOC: LAB.N 07:05
PROVIDERS: ATTEND Internal Medicine
DX: E03.9 Hypothyroidism, unspecified (principal); Z13.1 Encounter for screening for diabetes mellitus; Z13.220 Encounter for screening for lipoid disorders; Z12.5 Encounter for screening for malignant neoplasm of prostate
CPT/HCPCS: 36415; 80053; 80061; 83721; 84153; 84443